=== PATIENT | male | born 1970 | race Caucasian/White ===

== ENCOUNTER 2017-04-22 22:37 | Emergency (ER) | payer BC ==
[~2017-04-22] VITALS: Ht 170.2 cm; Wt 95.6 kg
[2017-04-22 22:39] VITALS: TEMP 37.9; Ht 170.2 cm; Wt 95.6 kg
[2017-04-22] MEDS ORDERED: ALBUT/IPRATROP 3MG/0.5MG NEB 3 ML VIAL INH STA (22:48)
[2017-04-22] MEDS ORDERED: SODIUM CHLORIDE 0.9% 1000ML 1,000 ML IV STA (22:48)
[2017-04-22] MEDS ORDERED: ACETAMINOPHEN 500 MG TAB PO STA (22:48)
[2017-04-22] MEDS ORDERED: KETOROLAC TROMETHAMINE 30 MG/ML VIAL IV STA (22:48)
[2017-04-22 23:16] LABS: BASO % 0.2 %; BASO ABS # 0.02 K/uL (0-0.2); EOS % 1.5 %; EOS ABS # 0.15 K/uL (0-0.5); HEMATOCRIT 39.8 % (42-52); HEMOGLOBIN 14.2 g/dL (14.0-18.0); IG# 0.03 K/uL (0.00-0.02); LYMPH % 16.2 %; LYMPH ABS # 1.61 K/uL (1.2-3.4); MEAN CELL VOLUME 84.5 fL (80-100); MEAN CORPUSCULAR HEMOGLOBIN 30.1 pg (25-34); MEAN CORPUSCULAR HGB CONC 35.7 g/dl (32-36); MEAN PLATELET VOLUME 9.5 fL (7.4-10.4); MONO % 8.2 %; MONO ABS # 0.81 K/uL (0.11-0.59); NEUT % 73.6 %; NEUT ABS # 7.31 K/uL (1.4-6.5); PLATELET COUNT 188 K/uL (130-400); RED CELL DISTRIBUTION WIDTH CV 12.8 % (11.5-14.5); RED CELL DISTRIBUTION WIDTH SD 39.1 fL (36.4-46.3); WHITE BLOOD COUNT 9.93 K/uL (4.8-10.8)
[2017-04-22 23:37] LABS: CALCIUM 8.7 mg/dl (8.5-10.1); CREATININE 1.07 mg/dl (0.60-1.40); POTASSIUM 3.7 mmol/L (3.5-5.1)
[2017-04-22] MEDS ORDERED: LEVO112T4 PO (23:42)
[2017-04-22 23:53] LABS: INFLUENZA B ANTIGEN Neg for Influ B (NEG)
[2017-04-23 00:27] LABS: INFLUENZA A PCR Neg for Influ A (NEG); INFLUENZA B PCR Neg for Influ B (NEG)
[2017-04-23] MEDS ORDERED: ALBUTEROL HFA 8 GM INHALER INH STA (00:33)
--- NOTE | 2017-04-23 00:33 | EMERGENCY ROOM VISIT NOTE ---
History First contact with patient: 22:44 Chief Complaint: RESPIRATORY PROBLEMS Stated Complaint: TROUBLE BREATHING,FLU LIKE SX Nursing Triage Summary: Flu like symptoms for a week. Patient reports increased difficulty breathing when preparing to go to work today. History of Present Illness The patient is a 46 year old male who presents to the Emergency Room with complaints of cough, congestion, myalgias and arthralgias for the past day who has had a cough all week. Tmax 102. Patient is tolerating by mouth fluids and food. Patient denies sore throat, neck status, chest pain, dyspnea, vomiting, diarrhea. No asthma history. Review of Systems See HPI for pertinent positives & negatives. A total of 10 systems reviewed and were otherwise negative. Past Medical/Surgical History Hypothyroidism Social History Smoking Status: Never Smoker Smokeless Tobacco Use: No Alcohol Use: occasionally Drug Use: none Marital Status: Housing Status: lives with family Occupation Status: employed Current/Historical Medications Scheduled Levothyroxine Sodium (Levothyroxine Sodium), 1 TAB PO DAILY Physical Exam Vital Signs Date Time Temp Pulse Resp B/P (MAP) Pulse Ox O2 Delivery O2 Flow Rate FiO2 04/22/17 22:39 37.9 84 16 129/81 98 Room Air Physical Exam VITALS: Vitals are noted on the nurse's note and reviewed by myself. Vital signs febrile GENERAL: Pleasant male speaking in full sentences, in no acute distress, nondiaphoretic, well-developed well-nourished. SKIN: The skin was without rashes, erythema, edema, or bruising. There is no tenting of the skin. Capillary reflex less than 2 seconds. HEAD: Normocephalic atraumatic. EARS: External auditory canals clear, tympanic membranes pearly montgomery without erythema or effusion bilaterally. EYES: Pupils equal round and reactive to light and accommodation. Conjunctivae without injection, sclerae without icterus. Extraocular movements intact. NOSE: Patent, turbinates without inflammation or discharge. No sinus tenderness. MOUTH: Mucous membranes moist. Pharynx without erythema or exudate. Uvula midline. Airway patent. Tongue does not deviate. NECK: Supple without nuchal rigidity. No lymphadenopathy. No thyromegaly. Cervical spine is nontender. No JVD. No meningeal signs HEART: Regular rate and rhythm without murmurs gallops or rubs. LUNGS: Clear to auscultation bilaterally without wheezes, rales or rhonchi. No dullness to percussion. No retractions or accessory muscle use. ABDOMEN: Positive bowel sounds x 4. Normal tympanic percussion. Soft, nontender, without masses or organomegaly. Watts sign negative. No guarding or rebound tenderness. MUSCULOSKELETAL: No muscle atrophy, erythema, or edema noted. NEURO: Patient was alert and oriented to person place and time. Normal sensation to light and sharp touch. No focal neurological deficits. Medical Decision & Procedures Laboratory Results 04/22/17 23:00 Red Blood Count 4.71, Mean Corpuscular Volume 84.5, Mean Corpuscular Hemoglobin 30.1, Mean Corpuscular Hemoglobin Concent 35.7, Mean Platelet Volume 9.5, Neutrophils (%) (Auto) 73.6, Lymphocytes (%) (Auto) 16.2, Monocytes (%) (Auto) 8.2, Eosinophils (%) (Auto) 1.5, Basophils (%) (Auto) 0.2, Neutrophils # (Auto) 7.31, Lymphocytes # (Auto) 1.61, Monocytes # (Auto) 0.81, Eosinophils # (Auto) 0.15, Basophils # (Auto) 0.02 04/22/17 23:00 Test 04/22/17 23:00 White Blood Count 9.93 K/uL (4.8-10.8) Red Blood Count 4.71 M/uL (4.7-6.1) Hemoglobin 14.2 g/dL (14.0-18.0) Hematocrit 39.8 % (42-52) Mean Corpuscular Volume 84.5 fL (80-100) Mean Corpuscular Hemoglobin 30.1 pg (25-34) Mean Corpuscular Hemoglobin Concent 35.7 g/dl (32-36) Platelet Count 188 K/uL (130-400) Mean Platelet Volume 9.5 fL (7.4-10.4) Neutrophils (%) (Auto) 73.6 % Lymphocytes (%) (Auto) 16.2 % Monocytes (%) (Auto) 8.2 % Eosinophils (%) (Auto) 1.5 % Basophils (%) (Auto) 0.2 % Neutrophils # (Auto) 7.31 K/uL (1.4-6.5) Lymphocytes # (Auto) 1.61 K/uL (1.2-3.4) Monocytes # (Auto) 0.81 K/uL (0.11-0.59) Eosinophils # (Auto) 0.15 K/uL (0-0.5) Basophils # (Auto) 0.02 K/uL (0-0.2) RDW Standard Deviation 39.1 fL (36.4-46.3) RDW Coefficient of Variation 12.8 % (11.5-14.5) Immature Granulocyte % (Auto) 0.3 % Immature Granulocyte # (Auto) 0.03 K/uL (0.00-0.02) Anion Gap 8.0 mmol/L (3-11) Est Creatinine Clear Calc Drug Dose 93.0 ml/min Estimated GFR () 94.6 Estimated GFR (Non- 81.7 BUN/Creatinine Ratio 12.5 (10-20) Calcium Level 8.7 mg/dl (8.5-10.1) Influenza Type A (RT-PCR) Neg for Influ A (NEG) Influenza Type A Antigen Neg for Influ A (NEG) Influenza Type B Antigen Neg for Influ B (NEG) Influenza Type B (RT-PCR) Neg for Influ B (NEG) Medications Administered Medications (Trade) Dose Ordered Sig/Adriana Route Start Time Stop Time Status Last Admin Dose Admin Albuterol/ Ipratropium (Duoneb) 3 ml NOW STAT INH 04/22/17 22:48 04/22/17 22:52 DC 04/22/17 23:11 3 ML Sodium Chloride 1,000 ml @ 999 mls/hr Q1H1M STAT IV 04/22/17 22:48 04/22/17 23:48 DC 04/22/17 22:48 999 MLS/HR Ketorolac Tromethamine (Toradol Inj) 30 mg NOW STAT IV 04/22/17 22:48 04/22/17 22:52 DC 04/22/17 23:12 30 MG Acetaminophen (Tylenol Tab) 1,000 mg NOW STAT PO 04/22/17 22:48 04/22/17 22:52 DC 04/22/17 23:12 1,000 MG ED Course Prior records/ancillary studies reviewed. Triage Nursing notes reviewed. Additional history obtained from family. The patient's history was concerning for fever. Differential diagnosis: Etiologies such as viral syndrome, otitis, pharyngitis, pneumonia, influenza, meningitis, urinary tract infection, sepsis, bacteremia, as well as others were entertained. Physical examination: Patient alert, interactive and nontoxic-appearing ER treatment provided: Tylenol, nebulizer, fluids On reassessment the patient felt better. Diagnostics interpreted by me: The labs revealed negative flu Imaging studies: Chest x-ray with no acute consolidation, pneumothorax or free air per my interpretation This appears to be consistent with bronchitis.. Patient had no signs of meningitis. He was neurovascularly and neurologically intact. He is well- appearing. He is advised to continue cold medications as directed, rest, stay well-hydrated and follow-up family care in a few days or here in the ER sooner for high fevers, lethargy, neck stiffness, worsening signs or symptoms or as needed. By the evaluation outlined above emergent etiologies such as otitis, pharyngitis, pneumonia, meningitis, urinary tract infection, sepsis, bacteremia , as well as others were deemed relatively unlikely. The pt informed about the findings as listed above. All questions were answered and pleased with the treatment. Return instructions were outlined and the patient was discharged in stable condition. Referral: The patient was referred back to their primary care physician for follow-up in 2 to 3 days for a recheck of the current condition. Case reviewed with my attending Medical Decision As above Medication Reconcilliation Current Medication List: was personally reviewed by me Blood Pressure Screening Patient's blood pressure: Normal blood pressure Impression Primary Impression: Acute bronchitis Departure Information Dispostion Home / Self-Care Condition GOOD Referrals Mariza Granger D.O. (PCP) Patient Instructions My [facility] Additional Instructions Acetaminophen(Tylenol) may be used for fever or pain. Use 1000mg every six hours as needed. Avoid using more than 3000mg in a 24 hour period. (AND/OR) Ibuprofen(Motrin, Advil) may be used for fever or pain. Use 600mg every six hours as needed. Take with food. Avoid using more than 2400mg in a 24 hour period. Do not use 2400mg per day for more than three consecutive days without physician direction. Prolonged inappropriate use can lead to stomach upset or ulcers. Afrin nasal spray: 2-3 sprays to each nostril twice daily as needed for congestion. Do not use for more than 3-4 days because it can lead to worsening rebound congestion. Pseudoephedrine(Sudaphed): 30-60mg every 6 hours as needed for nasal congestion. Do not take this with other stimulant products or supplements. Albuterol Inhaler: Take 2 puffs four times daily for seven days, then as needed. Rest and drink plenty of fluids. Controlling your fever with Tylenol and Ibuprofen as above will make you feel better. Wash your hands after nose blowing, sneezing, or coughing. Most germs are spread through contact, therefore improper hygiene may result in your close contacts and loved ones becoming ill just like you. Continue current medications. Return to the ER for severe headache, neck stiffness, chest pain, difficulty breathing, fevers, vomiting, worsening of your condition, or as needed. Follow up with your primary physician this week for a recheck of your current condition.
[2017-04-23 00:42] VITALS: BP 121/76; PULSE 80; O2SAT 96
--- NOTE | 2017-04-23 06:19 | DIAGNOSTIC IMAGING REPORT ---
CHEST 2 VIEWS ROUTINE CLINICAL HISTORY: 46 years-old Male presenting with cough/fever. TECHNIQUE: PA and lateral views of the chest were obtained. COMPARISON: None. FINDINGS: Cardiomediastinal silhouette normal. Slight obscuration of the left hemidiaphragm may relate to prominent pericardial fat. No focal infiltrate evident on lateral view. Lungs and pleural spaces otherwise clear. Osseous structures normal. Upper abdomen normal. IMPRESSION: 1. No convincing evidence of acute cardiopulmonary disease. Electronically signed by: Sonu Saldivar M.D. 04/23/2017 6:18 AM Dictated Date/Time: 04/23/2017 6:17 AM
== END 2017-04-23 00:42 | disposition home or self-care (01) ==
LOC: C.EDB 22:38
DX: J20.9 Acute bronchitis, unspecified (principal); E03.9 Hypothyroidism, unspecified